=== PATIENT | female | born 1965 | race Caucasian/White ===

== ENCOUNTER → 2018-09-18 11:35 | Outpatient (CLI) | payer OTHER, SELFPAY ==
[2016-12-17 06:59] VITALS: BMI 26.6
[2018-09-18 12:10] LABS: Absolute Lymphocyte Count 1.26 X10^3/ul (0.83-4.51); Basophil# 0.06 X10^3/uL; Basophil% 1.5 % (0-1); Eosinophil# 0.11 X10^3/uL; Eosinophils% 2.4 % (0-5); Hematocrit 44.3 % (37-47); Hemoglobin 15.3 g/dl (12.0-15.0); Lymphocyte # 1.26 X10^3/ul (4.0); Lymphocyte % 38.2 % (19-41); Mean Corp Hgb Conc 34.5 g/gl (32-36); Mean Corpuscular Hgb 30.2 pg (27.0-32.0); Mean Corpuscular Volume 87.5 fL (81-99); Mean Platelet Vol. 10.3 fl (6.2-12.0); Monocyte# 0.65 X10^3/uL; Monocyte% 16.1 % (0-10); Neutrophil # 1.95 X10^3/uL (2.7-7.7); Neutrophil % 48.3 % (47-70); POSITIVE COUNT NO; POSITIVE DIFFERENTIAL NO; POSITIVE MORPHOLOGY NO; Platelet Count 161 K/mm3 (150-450); RBC Distribution Width CV 13.3 % (11.6-14.6); RBC Distribution Width SD 42.1 fl (35.1-43.9); Red Blood Count 4.97 M/mm3 (4.2-5.4)
[2018-09-18 12:14] LABS: ALB/GLOB Ratio 1.1 RATIO (0.9-2.4); AST(SGOT) 61 U/L (15-37); Alanine Aminotransfer ALT/SGPT 43 U/L (13-56); Albumin, Serum 3.7 g/dL (3.2-5.0); Alkaline Phosphatase 84 U/L (45-117); Anion Gap 6 (5-15); BUN 13 mg/dL (7-18); BUN/Creat Ratio 16.4 RATIO (10-20); Calcium,Total 8.4 mg/dL (8.5-10.1); Chloride 109 mmol/L (98-107); Creatinine, Serum 0.79 mg/dL (0.55-1.02); EST Glomerular Filtration Rate 81 mL/min (>60); Est Glom Filt Rate - Afr Amer 98 mL/min (>60); Globulin 3.5 g/dL (2.2-4.2); Glucose 75 mg/dL (74-106); Potassium 3.8 mmol/L (3.5-5.1); Protein, Total 7.2 g/dL (6.4-8.2); Sodium Level 136 mmol/L (136-145)
--- NOTE | 2018-09-18 12:23 | RAD_ITS ---
STUDY: X-RAY - ABDOMEN/PELVIS REASON FOR EXAM: Female, 52 years old. Abdominal pain with nausea and diarrhea TECHNIQUE: Two AP supine views of the abdomen and pelvis. COMPARISON: 04/26/2017 FINDINGS: Left ureter stent has been removed. Small calcifications of the left kidney are similar. There is an unremarkable bowel gas pattern. There is no demonstrated free abdominal air. The visualized liver, spleen and kidneys are grossly normal in size and morphology. Surgical clips of the left abdomen similar and central pelvis slightly more inferior and to the left, likely related to prior tubal ligation. Normal visualized osseous structures. RAD/Abd Inc Decub and/or Erect IMPRESSION: 1. Similar left nephrolithiasis. Removal of left ureter stent. Electronically Signed: Ghanshyam Perry MD at 12:44 EDT , Service support ,
== END ==
PROVIDERS: Family Provider Family Medicine; PCP Family Medicine; Referring Provider Family Medicine; Visit Provider Family Medicine
DX: R10.9 Unspecified abdominal pain (principal)
CPT/HCPCS: 36415; 74019; 80053; 85025

== ENCOUNTER → 2019-03-25 09:55 | Outpatient (CLI) | payer OTHER, SELFPAY ==
[2016-12-17 06:59] VITALS: BMI 26.6
--- NOTE | 2019-03-25 10:00 | RAD_ITS ---
HISTORY: COUGH FOR A COUPLE OF WEEKS, WITH FEVER OFF AND ON. PATIENT STATES FOR LAST COUPLE OF DAYS HAS LEFT SIDE CHEST PAINS LATERALLY. EXAM: XR Chest 2 Views: COMPARISON: January 17, 2014 FINDINGS: # of images incl. paperwork: 2 Lungs are clear. Heart is not enlarged. Bones are normal. Pulmonary vascularity is distinct. No effusions. RAD/Chest PA and Lateral IMPRESSION: Normal. at 0141 Reported and signed by: Josh Valenzuela MD Electronically Signed: Josh Valenzuela MD at 1:40 EDT Tel , Service support ,
== END ==
PROVIDERS: Family Provider Family Medicine; PCP Family Medicine; Referring Provider Family Medicine; Visit Provider Family Medicine
DX: R07.9 Chest pain, unspecified (principal)
CPT/HCPCS: 71046

== ENCOUNTER 2020-12-28 17:46 | Emergency (ER) | payer SELFPAY ==
[2020-12-28 17:47] VITALS: BP 135/86; PULSE 77; RESP 14; TEMP 36.6; O2SAT 99; BMI 32.0
[2020-12-28 18:59] LABS: Absolute Lymphocyte Count 1.69 X10^3/uL (0.83-4.51); Absolute Neutrophil Count 4.1 X10^3/uL (2.0-7.7); Basophil# 0.03 X10^3/uL; Basophil% 0.5 % (0-1); Eosinophils% 1.6 % (0-5); Hematocrit 44.3 % (37-47); Hemoglobin 13.9 g/dL (12.0-15.0); Lymphocyte # 1.69 X10^3/ul (0.83-4.51); Lymphocyte % 26.9 % (19-41); Mean Corp Hgb Conc 31.4 g/dL (32-36); Mean Corpuscular Hgb 29.9 pg (27.0-32.0); Mean Corpuscular Volume 95.3 fL (81-99); Mean Platelet Vol. 10.8 fl (6.2-12.0); Monocyte% 6.4 % (0-10); NRBC Flagged by Analyzer 0 % (0-5); Neutrophil # 4.05 X10^3/uL (2.7-7.7); Neutrophil % 64.4 % (47-70); Platelet Count 235 K/mm3 (150-450); RBC Distribution Width CV 13.2 % (11.6-14.6); RBC Distribution Width SD 46.3 fl (35.1-43.9); Red Blood Count 4.65 M/mm3 (4.2-5.4); White Blood Count 6.3 K/mm3 (4.4-11.0)
[2020-12-28 19:08] LABS: Bacteria 0 SEEN /hpf (None Seen); Mucous, Urine 0 SEEN /hpf (<or=2+); Red Blood Cells-Urine 0 SEEN /hpf (0-5); Squamous Epithelial Cells - UA 0 SEEN /hpf (5-10)
[2020-12-28 19:09] LABS: ALB/GLOB Ratio 1.1 RATIO (0.9-2.4); AST(SGOT) 26 U/L (15-37); Alanine Aminotransfer ALT/SGPT 26 U/L (13-56); Albumin, Serum 3.8 g/dL (3.2-5.0); Alkaline Phosphatase 83 U/L (45-117); Anion Gap 6 (5-15); BUN 11 mg/dL (7-18); BUN/Creat Ratio 13.6 RATIO (10-20); Calcium,Total 9.2 mg/dL (8.5-10.1); Chloride 107 mmol/L (98-107); Creatinine, Serum 0.81 mg/dL (0.55-1.02); EST Glomerular Filtration Rate 79 mL/min (>60); Est Glom Filt Rate - Afr Amer 95 mL/min (>60); Estimated Creatinine Clearance 71.45 ml/min; Globulin 3.4 g/dL (2.2-4.2); Glucose 81 mg/dL (74-106); Protein, Total 7.2 g/dL (6.4-8.2); Sodium Level 141 mmol/L (136-145)
[2020-12-28 19:19] LABS: Color, Urine Yellow (Yellow); Glucose, Dipstick Normal (Normal); Ketone-Dipstick Negative (Negative); Leukocyte Esterase-Dipstick Negative /ul (Negative); Nitrite-Dipstick Negative (Negative); Occult Blood-Urine 10 /ul (Negative); Protein-Dipstick Negative (Negative); Urine Bilirubin Dipstick Negative (Negative); Urine Clarity Clear (Clear); Urine Urobilinogen Normal (Normal); Urine pH 6.5 (5.0 - 8.0)
[2020-12-28 19:26] LABS: White Blood Cells 0-5 SEEN /hpf (0-5)
[2020-12-28] MEDS: 0.9% Normal Saline 1,000 ML 1000 ML IV (19:28)
[2020-12-28] MEDS: Ketorolac 15 MG/ML Vial IV (19:28)
--- NOTE | 2020-12-28 19:32 | CT_ITS ---
EXAM: CT ABDOMEN AND PELVIS WITHOUT INTRAVENOUS CONTRAST : 1965 CLINICAL INDICATION: Pain TECHNIQUE: Helically acquired images were obtained of the abdomen and pelvis without intravenous contrast. This CT exam was performed using one or more of the following dose reduction techniques: automated exposure control, adjustment of the mA and/or kV according to patient size, and/or use of iterative reconstruction technique. This report was created using [employer] report generation technology. COMPARISON: 12/12/2016 FINDINGS: LOWER THORAX: Unremarkable. Lung bases are clear. No cardiomegaly. No significant pericardial effusion. ABDOMEN: LIVER: Unremarkable. Homogeneous. GALLBLADDER AND BILE DUCTS: Unremarkable. No calcified gallstones. No gallbladder distention or wall edema. No intra- or extrahepatic biliary ductal dilation. PANCREAS: Unremarkable. No focal cystic mass. SPLEEN: Unremarkable. Normal size without focal cystic or solid mass. ADRENALS: Unremarkable. No nodules. KIDNEYS AND URETERS: There are nonobstructing calyceal stones in the left kidney. There is no ureteral obstruction. Normal renal size and position. STOMACH AND BOWEL: Unremarkable. No stomach or bowel distention. No focal inflammatory change. PELVIS: APPENDIX: No evidence of acute appendicitis. BLADDER: Unremarkable. REPRODUCTIVE: Unremarkable as visualized. No mass. ABDOMEN and PELVIS: INTRAPERITONEAL SPACE: Unremarkable. No ascites or other fluid collection. No free air. BONES/JOINTS: Unremarkable. No suspicious lytic or blastic abnormality. SOFT TISSUES: Unremarkable. No discrete abdominal or pelvic wall hernia. VASCULATURE: Unremarkable. Abdominal aorta is non-dilated. LYMPH NODES: Unremarkable. No enlarged lymph nodes. CT/Abdomen/Pelvis without Cont IMPRESSION: Nonobstructing calyceal stones in the left kidney. There is no ureteral obstruction. No other abnormalities are identified. Individualized dose optimization techniques were used for this CT. at 2008 Reported and signed by: Arden Mcclain MD Electronically Signed: Arden Mcclain MD at 20:07 EDT Tel , Service support ,
--- NOTE | 2020-12-28 20:18 | EDS_ITS ---
HPI History of Present Illness Chief Complaint: Flank Pain Informant: patient Onset/Context/Timing Onset: Days Narrative Narrative: Patient is a 55-year-old female with history of kidney stones presenting with right-sided flank pain. Patient states 2 weeks ago she had a 30 to 40-minute episode of severe flank pain that felt like her prior kidney stone. 2 days ago she had another episode of severe pain the last for about 10 minutes and then resolved. She had a 5-minute episode yesterday. Today she has had more of a dull constant ache in her right flank that radiates slightly around her abdomen. She did she had some mild urinary urgency denies any hematuria. She was told office there was a small amount of blood in her urine. She denies any fever or chills. She saw her PCP today who recommend she come to the emergency room for further evaluation. [facility] Medical History (Updated 12/28/20 @ 21:[address] Kate Villatoro, DO) Kidney stones Home Medications ciprofloxacin HCl 500 mg PO BID #14 tablet 12/12/16 [Rx Last Taken Unknown] oxycodone-acetaminophen 1 - 2 tab PO Q4H PRN PRN #20 tab 12/12/16 [Rx Last Taken Unknown] tamsulosin 0.4 mg PO DAILY 5 Days capsule 12/12/16 [Rx Last Taken Unknown] ciprofloxacin HCl 500 mg PO BID #6 tablet 12/17/16 [Rx Last Taken Unknown] hydrocodone-acetaminophen [Vicodin 5-300 mg Tablet] 1 tab PO Q4H PRN PRN #14 tab 12/17/16 [Rx Last Taken Unknown] Allergy/AdvReac Type Severity Reaction Status Date / Time No Known Allergies Allergy Verified 12/28/20 17:47 Social History Smoking Status: Never smoker ROS ROS ED Constitutional Constitutional ED: Denies chills or fever(s) Eyes Eyes: Denies change in vision ENT ENT ED: Denies rhinorrhea or sore throat Cardiovascular Cardiovascular: Denies chest pain or palpitations Respiratory/Chest Respiratory/Chest: Denies cough or dyspnea Gastrointestinal Gastrointestinal: Reports abdominal pain; Denies diarrhea, nausea or vomiting Genitourinary Genitourinary ED: Reports urinary frequency; Denies dysuria or hematuria Musculoskeletal Musculoskeletal: Reports back pain; Denies arthralgias or myalgias Integumentary Denies rash Neurologic Neurologic: Denies headache(s) or weakness Psychiatric Psychiatric: Denies depression EXAM Physical Exam Const Vital Signs: 12/28/20 17:47 Temperature 97.8 F Temperature Source Temporal Pulse Rate 77 Respiratory Rate 14 Blood Pressure 135/86 H Blood Pressure Mean 102 Pulse Ox 99 Oxygen Delivery Method Room Air Positive well nourished and well developed General Appearance ED: well developed HEENT Reports moist mucous membranes Eyes PERRL and EOMs intact bilaterally Neck supple and no JVD Resp normal respiratory effort and clear to auscultation bilaterally Cardio regular rate, regular rhythm and no murmurs GI normal to inspection, nondistended, normoactive bowel sounds and non-tender GI Narrative: Negative Valles sign Back/Spine no CVA tenderness Back/Spine Narrative: Patient points to her right flank as the area of pain however is not reproducible on palpation Extremity normal to inspection General Extremety ED: Negative for edema General Extremity: Negative for edema Neuro oriented x3 and CN's II-XII intact bilaterally Sensorium / Orientation: alert Motor Exam: Negative for general weakness Psych mental status grossly normal Skin no rashes or lesions noted MDM MDM MDM Narrative Medical decision making narrative: Patient evaluated for right flank pain. Is been intermittent for the past 2 weeks but has been more consistent today. She does have a history of kidney stones. She is given Toradol and fluids in the ER. On reevaluation she appears comfortable. Her vital signs are normal. Her work-up is largely unremarkable. She has normal kidney function. No findings with infection. Urinalysis shows 0-5 white blood cells with no bacteria and no nitrates. No acute processes seen on CT of the abdomen pelvis that contrast. She is not having any pain in her right upper quadrant and does not have a kidney stone and I do not know what the cause of her pain is. Patient is counseled that is possible she might of previously passed the stone. She is encouraged follow-up with her primary care doctor for further evaluation but I do not have a diagnosis today. Patient verbalizes agreement understanding this plan. At this time she is very well-appearing I do not think a repeat CT with IV contrast is indicated. Patient encouraged to continue to take NSAIDs or Tylenol as needed for pain. Lab Data Labs: Laboratory Results - last 24 hr 12/28/20 12/28/20 12/28/20 18:25 18:25 18:49 WBC 6.3 RBC 4.65 Hgb 13.9 Hct 44.3 MCV 95.3 MCH 29.9 MCHC 31.4 L RDW Std Deviation 46.3 H RDW Coeff of Saturnino 13.2 Plt Count 235 MPV 10.8 Immature Gran % (Auto) 0.200 Neut % (Auto) 64.4 Lymph % (Auto) 26.9 Hartley % (Auto) 6.4 Eos % (Auto) 1.6 Baso % (Auto) 0.5 Absolute Neuts (auto) 4.1 Absolute Lymphs (auto) 1.69 Nucleated RBC % 0 Sodium 141 Potassium 4.0 Chloride 107 Carbon Dioxide 28.0 Anion Gap 6 BUN 11 Creatinine 0.81 Estim Creat Clear Calc 71.45 Est GFR (MDRD) Af Amer 95 Est GFR (MDRD) Non-Af 79 BUN/Creatinine Ratio 13.6 Glucose 81 Calcium 9.2 Total Bilirubin 0.30 AST 26 ALT 26 Alkaline Phosphatase 83 Total Protein 7.2 Albumin 3.8 Globulin 3.4 Albumin/Globulin Ratio 1.1 Urine Color Yellow Urine Clarity Clear Urine pH 6.5 Ur Specific [place] 1.010 Urine Protein Negative Urine Glucose (UA) Normal Urine Ketones Negative Urine Occult Blood 10 H Urine Nitrite Negative Urine Bilirubin Negative Urine Urobilinogen Normal Ur Leukocyte Esterase Negative Urine RBC 0 SEEN Urine WBC 0-5 SEEN Ur Squamous Epith Cells 0 SEEN Urine Bacteria 0 SEEN Urine Mucus 0 SEEN Radiography Diagnostic Testing: Radiology Impression Abdomen/Pelvis CT 12/28/20 19:32 IMPRESSION: Nonobstructing calyceal stones in the left kidney. There is no ureteral obstruction. No other abnormalities are identified. Individualized dose optimization techniques were used for this CT. at 2008 Reported and signed by: Arden Mcclain MD Electronically Signed: Arden Mcclain MD at 20:07 EDT Tel , Service support , Discharge Plan Triage Chief Complaint: Flank Pain ED Provider: Kate Villatoro Dx/Rx/DC Orders Clinical Impression: Acute right flank pain Instructions: ED Flank Pain, Uncertain Cause Prescriptions: No Action ciprofloxacin HCl 500 MG tablet 500 mg PO BID Qty: 14 RF: 0 oxycodone-acetaminophen 1 TABLET tablet 1 - 2 tab PO Q4H PRN PRN (Reason: Pain) Qty: 20 RF: 0 tamsulosin 0.4 MG capsule 0.4 mg PO DAILY 5 Days RF: 0 ciprofloxacin HCl 500 MG tablet 500 mg PO BID Qty: 6 RF: 0 hydrocodone-acetaminophen [Vicodin] 1 EACH tablet 1 tab PO Q4H PRN PRN (Reason: Pain) Qty: 14 RF: 0 Primary Care Provider: Marco Block Referrals: Marco Block MD [Primary Care Provider] - Activity Restrictions/Additional Instructions: Your work-up today was normal. There is no sign of a kidney stone to be causing your pain. Please follow-up with your primary care doctor if the pain persist. Disposition Disposition: Home, Self Care
[2020-12-28 21:22] VITALS: BP 123/69; PULSE 62; RESP 15; O2SAT 100
== END 2020-12-28 21:24 | disposition home or self-care (01) ==
PROVIDERS: Emergency Provider Emergency Medicine; PCP Family Medicine
DX: R10.9 Unspecified abdominal pain (principal); Z79.899 Other long term (current) drug therapy; Z87.442 Personal history of urinary calculi
CPT/HCPCS: 74176; 80053; 81001; 85025; 96361; 96374; 99284; J7030; A4216

== ENCOUNTER → 2021-02-26 | Outpatient (CLI) | payer BC, SELFPAY | END | disposition home or self-care (01) | LOC: LABSPEC 02-27 08:22 | PROVIDERS: Visit Provider Family Medicine | DX: Z20.822 Contact with and (suspected) exposure to COVID-19 (principal) | CPT/HCPCS: 87635; U0005; U0003 ==

== ENCOUNTER 2021-07-31 17:38 | Outpatient (CLI) | payer OTHER, SELFPAY ==
--- NOTE | 2021-07-31 17:51 | CT_ITS ---
INDICATION: particular attention to left side. EXAMINATION: CT Soft Tissue Neck W/ Contrast Injection TECHNIQUE: Helically acquired images were obtained of the neck following IV contrast. A radiation dose optimization technique was used for this scan. IV Contrast dosage and agent: 100 cc [id number] COMPARISON: None. FINDINGS: NASOPHARYNX: Unremarkable. SUPRAHYOID NECK: Unremarkable oropharynx, oral cavity, parapharyngeal space, and retropharyngeal space. INFRAHYOID NECK: Unremarkable larynx, hypopharynx, and supraglottis. THYROID: No focal lesions. SALIVARY GLANDS: Unremarkable. LYMPH NODES: No cervical or supraclavicular lymphadenopathy. VASCULAR STRUCTURES: Unremarkable. VISUALIZED PORTIONS OF THE ORBITS, PARANASAL SINUSES, MASTOID AIR CELLS AND SKULL BASE: Unremarkable. BONES: Unremarkable. THORACIC INLET: Clear lung apices. CT/Soft Tissue Neck WITH Contrast IMPRESSION: Negative CT Neck with contrast. Electronically Signed: Niranjan Her MD at 19:43 EST ,
[2021-07-31 18:20] LABS: Absolute Lymphocyte Count 1.84 X10^3/uL (0.83-4.51); Absolute Neutrophil Count 4.1 X10^3/uL (2.0-7.7); Basophil# 0.04 X10^3/uL; Basophil% 0.6 % (0-1); Eosinophil# 0.08 X10^3/uL; Eosinophils% 1.2 % (0-5); Hematocrit 41.8 % (37-47); Hemoglobin 14.2 g/dL (12.0-15.0); Lymphocyte # 1.84 X10^3/ul (0.83-4.51); Lymphocyte % 28.4 % (19-41); Mean Corpuscular Hgb 31.1 pg (27.0-32.0); Mean Corpuscular Volume 91.7 fL (81-99); Mean Platelet Vol. 10.1 fl (6.2-12.0); Monocyte# 0.41 X10^3/uL; Monocyte% 6.3 % (0-10); NRBC Flagged by Analyzer 0 % (0-5); Neutrophil # 4.09 X10^3/uL (2.7-7.7); Neutrophil % 63.3 % (47-70); Platelet Count 225 K/mm3 (150-450); RBC Distribution Width SD 43.8 fl (35.1-43.9); Red Blood Count 4.56 M/mm3 (4.2-5.4); White Blood Count 6.5 K/mm3 (4.4-11.0)
[2021-07-31 18:28] LABS: Erythrocyte Sedimentation Rate 14 mm/hr (0-30)
[2021-07-31 18:42] LABS: ALB/GLOB Ratio 0.9 RATIO (0.9-2.4); AST(SGOT) 23 U/L (15-37); Alanine Aminotransfer ALT/SGPT 24 U/L (13-56); Albumin, Serum 3.5 g/dL (3.2-5.0); Alkaline Phosphatase 88 U/L (45-117); Anion Gap 4 (5-15); BUN 14 mg/dL (7-18); Calcium,Total 9.2 mg/dL (8.5-10.1); Chloride 106 mmol/L (98-107); Creatinine, Serum 0.82 mg/dL (0.55-1.02); EST Glomerular Filtration Rate 77 mL/min (>60); Est Glom Filt Rate - Afr Amer 93 mL/min (>60); Globulin 3.8 g/dL (2.2-4.2); Glucose 75 mg/dL (74-106); Potassium 3.7 mmol/L (3.5-5.1); Protein, Total 7.3 g/dL (6.4-8.2); Sodium Level 137 mmol/L (136-145); Thyroid Stim Hormone (TSH) 0.93 uIU/mL (0.358-3.74)
== END 2021-07-31 23:59 | disposition home or self-care (01) ==
PROVIDERS: PCP Family Medicine; Visit Provider Nurse Practitioner Family
DX: R22.0 Localized swelling, mass and lump, head (principal)
CPT/HCPCS: 36415; 70491; 80053; 84443; 85025; 85652; Q9967

== ENCOUNTER 2022-03-10 06:05 | Day surgery (SDC) | payer SELFPAY ==
[2022-03-10] VITALS (10 sets, daily range): BP systolic 89–121; BP diastolic 52–65; PULSE 54–85; RESP 14–16; TEMP 35.7–36.3; O2SAT 91–100; BMI 30.5
[2022-03-10] MEDS: Lactated Ringers 1,000 ML 15 ML IV (06:20)
[2022-03-10] MEDS: Clindamycin 900 MG/50 ML BAG 75 MG IV (07:30)
--- NOTE | 2022-03-10 07:30 | SUBM_PTH ---
PATIENT: MARTI CALVILLO LOC: [facility] – [place], [place] U#:[id number] AGE/SX: 56/F ROOM: RE03/10/[address]: Dr. Niranjan Lomeli MD : 1965 BED: DIS: 03/10/2022 SPEC #: [id number] RECD: 03/10/22 11:10 STATUS: DAY PERSON #: [id number] ALTHEA: 03/10/22 07:[address]: Niranjan Lomeli DEPT: SURGICAL PATHOLOGY RECD BY: Tea Keyes ENTERED: 03/10/22 13:24 SP TYPE: SUBMAN GL OTHR DR: Dr. Niranjan Block MD Tissues: Salivary gland, NOS Procedures: Surgery Specimen Level V HEADER OPERATION: Excision, submandibular gland PRE-OP DIAGNOSIS: Chronic sialoadenitis TISSUE SUBMITTED: Left submandibular gland MICROSCOPIC DIAGNOSIS Left submandibular gland, excision: Mild chronic sialadenitis and sialalithiasis. AM:mona 03/12/2022 COMMENT Case has been reviewed in consultation with Dr. Pires who concurs with the above diagnosis. IDC:JULIENNE MICROSCOPIC DESCRIPTION Slides are reviewed. GROSS DESCRIPTION Received in fixative is one container labeled with the patient's name and designated left submandibular gland. The specimen consists of glandular tissue measuring 4.3 x 3 x 2 cm and weighing 9 gm. Sections reveal a braga stone measuring 0.3 x 0.2 x 0.1 cm. No mass lesion is identified. [employer]ker sections are submitted in six cassettes. / JULIENNE:mona 03/10/2022 The rest of the soft tissue is submitted in two more cassettes, 7 & 8. The stone is for gross identification only. / JULIENNE:mona 03/11/2022 TC:3 CPT: 92598
[2022-03-10] MEDS: Lidocaine 1% /Epi 1:100 (20ml) 20 ML Vial (07:56)
[2022-03-10] MEDS: Mupirocin Ointment 22gm Tube 1 APPLIC (08:47)
--- NOTE | 2022-03-10 09:00 | DCINST_ITS ---
Discharge Instructions Diet Discharge Diet: No restrictions Activity Discharge Activity: Return to Normal Activity Dressing / Incision Call your doctor if your incision/area has: Sudden Increased Bleeding Additional Dressing/Incision Instructions:: remove dressing and rubber band thursday. after that, dress the incision only if there is oozing; use mupirocin ointment three times per day Follow Up Care Please Follow Up With: Niranjan Lomeli MD When: 1 week Test Results: Test results from this visit will be discussed in further detail at your follow- up appointment, if applicable. Discharge Plan Admission Attending Provider: Niranjan Lomeli Primary Care Provider: Marco Block Discharge Orders/Prescriptions Prescriptions: No Action multivitamin Tablet 1 tab PO DAILY sumatriptan succinate 100 mg tablet 100 mg PO PRN PRN (Reason: MIGRAINES) Label Comments: take 1 tablet by mouth AT ONSET OF HEADACHE - MAY REPEAT 2 HOURS LATER IF NEEDED calcium 500 mg Tablet 500 mg PO DAILY Referrals / Follow Up: Marco Block MD [Primary Care Provider] - Disposition Disposition (needs filled in before D/C Order can be placed): Home, Self Care
--- NOTE | 2022-03-10 09:01 | OP.PCM_ITS ---
Problems Associated Problem List Diagnoses (1) Sialadenitis: Report of Operation Date of Procedure: 03/10/22 Pre-Operative Diagnosis: sialadenitis, left submandibular Post-Operative Diagnosis: sialadenitis, left submandibular Surgery/Procedure Performed:: left submandibular gland excision Surgeon: Niranjan Lomeli Type of Anesthesia: General Drains: corinna Estimated Blood Loss (mL): 2cc Description of Procedure: on the day of the procedure, after appropriate informed consent was obtained, the patient was brought to the operating room and placed in supine position on the operating table. she was placed under general endotracheal anesthesia by the anesthesiologist. the endotracheal tube was secured, the eyes were taped. the table was rotated 90 degrees toward the surgeon. the left tansverse neck 2 fingers inferior to the mandible was injected with lidocaine/epinephrine. the face was prepped/draped in sterile fashion. a shoulder roll was placed. a 3cm incision was made in the injection site. the platysma was divided with the 15 blade and subplatysmal flaps were dissected bluntly. the inferior fascia of the left submandibular gland was incised and opened transversely, along the inferior border of the gland. the fascia was removed off of the gland with the kenyatta um scissor. the anterior belly of the digastric and mylohyoid muscle were identified. the hypoglossal and lingual nerves were identified. the mylohyoid was retracted superiorly. the facial artery, vein and submandibular duct were identified and divided. the lingual nerve contributions to the gland were divided and tied. a corinna was placed. the incision was closed with 4-0 vicryl and 6-0 nylon. she was awoken from anesthesia and transferred to the PACU in stable condition.
[2022-03-10] MEDS: Acetaminophen/Codeine #3 Tablet 1 TABLET PO (11:14)
== END 2022-03-10 12:40 | disposition home or self-care (01) ==
LOC: SDC 06:09 → AC 06:10
PROVIDERS: PCP Family Medicine; Referring Provider Otolaryngology; Visit Provider Otolaryngology
PROC: (CPT 42440; principal; 2022-03-10 07:00)
DX: K11.23 Chronic sialoadenitis (principal); Z78.0 Asymptomatic menopausal state
CPT/HCPCS: 42440; 00100; 88307; J7120; J2405

== ENCOUNTER 2022-07-15 06:04 | Day surgery (SDC) | payer OTHER, SELFPAY ==
[2022-07-15] VITALS (15 sets, daily range): BP systolic 73–128; BP diastolic 34–73; PULSE 53–65; RESP 15–17; TEMP 35.9–36.7; O2SAT 92–100; BMI 30.7
--- NOTE | 2022-07-15 06:23 | PCM.HP.STD ---
[facility] - General General Date of Service: 07/15/22 Chief Complaint: Screening for intestinal cancer [facility] Narrative MARTI CALVILLO, is a 56 F who presents for screening colonoscopy today. She has not had a previous one. She denies any abdominal pain bright red blood per rectum or melena. She otherwise enjoys good health other than for migraines. [facility] Medical History Former smoker Kidney stones Migraine headache Post-menopausal Wears glasses Home Medications calcium 500 mg tablet 500 mg PO DAILY 03/03/22 [History Last Taken Unknown] multivitamin 1 tab PO DAILY 03/03/22 [History Last Taken Unknown] sumatriptan succinate 100 mg tablet 100 mg PO PRN PRN MIGRAINES 03/03/22 [History Last Taken Unknown] Allergy/AdvReac Type Severity Reaction Status Date / Time No Known Allergies Allergy Verified 04/11/22 10:16 Surgical History History of mandibular surgery Hx of cystoscopy Hx of dilation and curettage Hx of laparoscopy Hx of surgical procedure Social History Smoking Status: Never smoker ROS Constitutional Constitutional: Reports systems reviewed and no addt'l complaints, except as documented Cardiovascular Cardiovascular: Denies chest pain Respiratory/Chest Respiratory/Chest: Denies shortness of breath at rest Gastrointestinal Gastrointestinal: Denies abdominal pain, change in bowel habits, hematochezia or melena Physical Exam Const alert, oriented x3 and no apparent distress General Appearance: cooperative and comfortable Eyes General Eye: normal appearance of both eyes Neck General: normal visual inspection Chest inspection of chest normal Resp Effort and Inspection: able to speak in complete sentences and symmetric chest movement Auscultation: clear to auscultation bilaterally Cardio regular rate and regular rhythm GI soft to palpation, non-tender and non-distended Extremity no calf tenderness Neuro oriented x3 Psych thought process normal Assessment & Plan Assessment/Plan (1) Encounter for screening for malignant neoplasm of colon: PLAN: 56-year-old female presents for screening colonoscopy with possible biopsy or polypectomy as indicated. She presents via open access. She has not had a previous exam. She is aware of the technique, benefit, risk, alternatives. She has had an opportunity to ask and have questions answered. We will proceed as noted. Brennen Anderson M.D., F.A.C.S.
[2022-07-15] MEDS: Lactated Ringers 1,000 ML 15 ML IV (06:40)
[2022-07-15] MEDS: Midazolam 5 MG/ML Syringe (06:58)
--- NOTE | 2022-07-15 07:22 | OP.COLON_ITS ---
Patient Name: Sarah Manning Procedure Date: 07/15/2022 6:54 AM Date of : 1965 Age: 56 Procedure: Colonoscopy Indications: Screening for colorectal malignant neoplasm Providers: Brennen Anderson MD Referring MD: Marco Block Medicines: Midazolam 4.5 mg IV, Meperidine 100 mg IV Patient Profile: Last Colonoscopy: none. The patient's first colonoscopy is today. Complications: No immediate complications. Procedure: Pre-Anesthesia Assessment: - Prior to the procedure, a History and Physical was performed, and patient medications and allergies were reviewed. The patient's tolerance of previous anesthesia was also reviewed. The risks and benefits of the procedure and the sedation options and risks were discussed with the patient. All questions were answered, and informed consent was obtained. Prior Anticoagulants: The patient has taken no previous anticoagulant or antiplatelet agents. ASA Grade Assessment: I - A normal, healthy patient. After reviewing the risks and benefits, the patient was deemed in satisfactory condition to undergo the procedure. After I obtained informed consent, the scope was passed under direct vision. Throughout the procedure, the patient's blood pressure, pulse, and oxygen saturations were monitored continuously. The adult colonoscope was introduced through the anus and advanced to the cecum, identified by appendiceal orifice and ileocecal valve. The colonoscopy was performed without difficulty. The patient tolerated the procedure well. The quality of the bowel preparation was good. The ileocecal valve and the appendiceal orifice were photographed. Moderate Sedation: Moderate (conscious) sedation was personally administered by the endoscopist. The following parameters were monitored: oxygen saturation, heart rate, blood pressure, and response to care. Total physician intraservice time was 15 minutes. Scope In: 7:02:03 AM Scope Withdrawal Time 0 hours 9 minutes 38 seconds Scope Out: 7:18:45 AM Total Procedure Duration Time 0 hours 16 minutes 42 seconds Findings: Hemorrhoids were found on perianal exam. The colon (entire examined portion) appeared normal. Impression: - Hemorrhoids found on perianal exam. - The entire examined colon is normal. - No specimens collected. Recommendation: - Discharge patient to home. - Resume previous diet. - Continue present medications. - Repeat colonoscopy in 10 years for screening purposes. Procedure Code(s): --- Professional --- 76841, Colonoscopy, flexible; diagnostic, including collection of specimen(s) by brushing or washing, when performed (separate procedure) 52893, 59, Moderate sedation services provided by the same physician or other qualified health healthcare risk control consultant performing the diagnostic or therapeutic service that the sedation supports, requiring the presence of an independent trained observer to assist in the monitoring of the patient's level of consciousness and physiological status; initial 15 minutes of intraservice time, patient age 5 years or older Diagnosis Code(s): --- Professional --- Z12.11, Encounter for screening for malignant neoplasm of colon K64.9, Unspecified hemorrhoids CPT copyright 2017 [employer]. All rights reserved. The codes documented in this report are preliminary and upon shear assembler review may be revised to meet current compliance requirements. Brennen Anderson MD 07/15/2022 7:22:03 AM This report has been signed electronically. Number of Addenda: 0 Note Initiated On: 07/15/2022 6:54 AM
--- NOTE | 2022-07-15 07:22 | OP.CCLET_ITS ---
07/15/2022 Marco Block [address] [place] [address] Re : Colonoscopy procedure for Sarah Manning Dear Dr. Block This procedure was performed on Friday, July 15, 2022. My impressions and recommendations are as follows: Impressions : - Hemorrhoids found on perianal exam. - The entire examined colon is normal. - No specimens collected. Recommendations : - Discharge patient to home. - Resume previous diet. - Continue present medications. - Repeat colonoscopy in 10 years for screening purposes. My findings are described in the full procedure note, which is enclosed. If I can be of further assistance, please feel free to contact me at Doctor phone number(s): Work: . Sincerely, Brennen Anderson MD 07/15/2022 7:22:03 AM This report has been signed electronically.
== END 2022-07-15 08:47 | disposition home or self-care (01) ==
LOC: EN 06:05 → AC 06:06
PROVIDERS: PCP Family Medicine; Referring Provider Family Medicine; Visit Provider Surgery
PROC: 0DJD8ZZ Inspection of Lower Intestinal Tract, Via Natural or Artificial Opening Endoscopic (ICD-10-PCS; CPT 45378; principal; 2022-07-15 06:55)
DX: Z12.11 Encounter for screening for malignant neoplasm of colon (principal); G43.909 Migraine, unspecified, not intractable, without status migrainosus; K64.9 Unspecified hemorrhoids; Z87.891 Personal history of nicotine dependence
CPT/HCPCS: 45378; 99152; 99153; J7120

== ENCOUNTER → 2022-07-16 | Outpatient (CLI) | payer OTHER, SELFPAY ==
--- NOTE | 2022-07-16 10:15 | BI_ITS ---
MAMMOGRAPHY - BILATERAL SCREENING REASON FOR EXAM: Female, 56 years old. Routine annual screening examination. PERTINENT HISTORY: Grandmother with breast cancer. Remote left stereotactic breast biopsy. TECHNIQUE: Digital bilateral breast rasheed (3D mammographic acquisition) in the CC and MLO projections. 2-D mediolateral oblique (MLO) and craniocaudad (CC) views of both breasts were obtained. CAD: Full Field Digital Mammography with Computer Added Detection was performed. COMPARISON: Comparison is made with prior study 09/13/2015 and 04/05/2010. FINDINGS: Breast Composition: There are scattered areas of fibroglandular density. There are no dominant masses or suspicious calcifications. A tissue clip marker is seen in the upper anterior midportion of the left breast. Stable small benign-appearing bilateral axillary No other significant abnormalities are identified. There has been no significant change since the prior study. BI/SCRN MAMM (CAD)W/RASHEED BILAT IMPRESSION: Stable bilateral screening mammogram. Yearly follow-up mammogram recommended. (A) ASSESSMENT CATEGORY: BIRADS Category 2: Benign. A letter regarding these results will be sent to the patient by the facility within 30 days. Approximately 10% of breast cancers are not detected by mammography. A normal mammogram should not delay biopsy of a clinically suspicious abnormality. [id number] Electronically Signed: Jacob Mcdonough MD at 12:20 EST ,
== END | disposition home or self-care (01) ==
LOC: OPBI 10:14
PROVIDERS: PCP Family Medicine; Visit Provider Family Medicine
DX: Z12.31 Encounter for screening mammogram for malignant neoplasm of breast (principal)
CPT/HCPCS: 77063; 77067

== ENCOUNTER → 2023-04-29 | Outpatient (CLI) | payer OTHER, SELFPAY ==
[2023-04-29 17:40] LABS: Absolute Lymphocyte Count 0.93 X10^3/uL (0.83-4.51); Absolute Neutrophil Count 2.7 X10^3/uL (2.0-7.7); Basophil# 0.04 X10^3/uL; Eosinophil# 0.13 X10^3/uL; Eosinophils% 3.1 % (0-5); Hematocrit 42.4 % (37-47); Hemoglobin 13.5 g/dL (12.0-15.0); Lymphocyte # 0.93 X10^3/ul (0.83-4.51); Lymphocyte % 22.1 % (19-41); Mean Corp Hgb Conc 31.8 g/dL (32-36); Mean Corpuscular Volume 91.2 fL (81-99); Mean Platelet Vol. 10.7 fl (6.2-12.0); Monocyte# 0.42 X10^3/uL; NRBC Flagged by Analyzer 0 % (0-5); Neutrophil # 2.67 X10^3/uL (2.7-7.7); Neutrophil % 63.6 % (47-70); Platelet Count 228 K/mm3 (150-450); RBC Distribution Width CV 12.9 % (11.6-14.6); RBC Distribution Width SD 42.9 fl (35.1-43.9); Red Blood Count 4.65 M/mm3 (4.2-5.4); White Blood Count 4.2 K/mm3 (4.4-11.0)
== END | disposition home or self-care (01) ==
PROVIDERS: PCP Family Medicine; Visit Provider Family Medicine
DX: R09.89 Other specified symptoms and signs involving the circulatory and respiratory systems (principal)
CPT/HCPCS: 36415; 85025

== ENCOUNTER → 2023-04-29 | Outpatient (CLI) | payer SELFPAY ==
--- NOTE | 2023-04-29 16:30 | RAD_ITS ---
STUDY: X-RAY CHEST REASON FOR EXAM: Female, 57 years old. respiratory crackles TECHNIQUE: PA and lateral views of the chest. COMPARISON: 03/25/2019. FINDINGS: Minimal left lower lobe atelectasis, otherwise the lungs are clear and expanded. There is no demonstrated pleural abnormality. Normal size heart. Normal mediastinum and sharonda. Normal visualized pulmonary arteries. Normal visualized aortic arch and descending thoracic aorta. There are mild degenerative changes of the visualized thoracic spine. Normal visualized ribs, clavicles, and shoulders. There is no demonstrated abnormality of the visualized soft tissue structures of the upper abdomen. RAD/Chest PA and Lateral IMPRESSION: Minimal left lower lobe/basilar atelectasis, otherwise no acute cardiac pulmonary disease. Electronically Signed: Shanthi Bassett MD at 1:15 EST ,
== END | disposition home or self-care (01) ==
PROVIDERS: PCP Family Medicine; Referring Provider Family Medicine; Visit Provider Family Medicine
DX: R09.89 Other specified symptoms and signs involving the circulatory and respiratory systems (principal)
CPT/HCPCS: 71046